=== PATIENT | female | born 1955 | race Caucasian/White ===

== ENCOUNTER → 2025-05-17 | Outpatient (REF) | payer MEDICARE, BC ==
[~2025-05-17] MED LIST: AMOX875T2 PO; NITR100C2
== END ==
LOC: M LAB REF 11:00
PROVIDERS: ATTEND Registered Nurse
DX: R19.7 Diarrhea, unspecified (principal); K21.9 Gastro-esophageal reflux disease without esophagitis; R56.9 Unspecified convulsions